=== PATIENT | female | born 1975 | race Caucasian/White ===

== ENCOUNTER → 2022-04-28 06:57 | Outpatient (CLI) | payer BC, SELFPAY ==
--- NOTE | 2022-04-28 06:58 | CA_ITS ---
APPROVED REPORT Exam: Exercise Treadmill Technologist: NEELAM FLORIAN, Ht: 5 ft 1 in Wt: 177 lbs BSA: 1.79 m2 HR: 61 bpm BP: 125/72 mmHg Indications: CP; ABNORMAL EKG, SOA Medical History Medical History: HTN, Hyperlipidemia Medications: Lisinopril,,,,, Omeprazole,,,,, Trazadone,,,,, Fluoxetine,,,,, BenaDRYL,,,,, Imitrex,,,,, Methocarbamol,,,,, RoSUVASTATIN,,,,, HydrochloratHIAZIDE,,,,, Multivitamin,,,,, Potassium,,,,, Allergies: penicillin Cardiac Risk Factors: HTN, Hyperlipidemia, FHX of CAD Stress Test Details Test: Jordon HR Resting HR: 72 bpm Max Heart Rate (APMHR): 176.642499 bpm Max HR Achieved: 164 bpm Target HR (85% APMHR): 149.318304 bpm % of APMHR: 93.18 Recovery HR: 93 bpm BP Resting BP: 119/72 mmHg Max BP: 160/70 mmHg Recovery BP: 159.0/69.0 mmHg ECG Clinical Exercise duration: 06:37 min Highest Stage Achieved: Exercise capacity: 7.0 METs Stress ECG Conclusion PT HAD SOA, AND CHEST TIGHTNESS. OCCASIONAL PAC/PVC <1.[address] CHANGE Test Summary REST . . . . . . . Resting Sitting REST . . . . . . . Standing REST 11:30 0.0 0.0 72 . 119/ 72 . . Stage 1 01:00 10.0 1.7 102 . . . . Stage 1 02:00 10.0 1.7 106 . . . . Stage 1 03:00 10.0 1.7 112 . 140/ 68 . . Stage 2 01:00 12.0 2.5 124 . . . . Stage 2 02:00 12.0 2.5 136 . 155/ 70 . . Stage 2 03:00 12.0 2.5 140 . 155/ 70 . . Stage 3 00:37 14.0 3.4 115 . . . Stop exercise at 06:37 RECOVERY 01:00 0.0 0.0 136 . . . . RECOVERY 02:00 0.0 0.0 113 . 160/ 70 . . RECOVERY 03:00 0.0 0.0 100 . 160/ 70 . . RECOVERY 04:00 0.0 0.0 92 . 159/ 69 . . RECOVERY 05:00 0.0 0.0 88 . 130/ 57 . . RECOVERY 05:04 0.0 0.0 90 . 130/ 57 . . Electronically signed by : Olman Chow MD 04/28/2022 13:26:56
--- NOTE | 2022-04-28 06:58 | NM_ITS ---
APPROVED REPORT Exam: Nuclear Stress Test Indication: HTN, HYPERLIPIDEMIA, FM HX., C.P., SOB, PALPITATIONS, ABN EKG, TOB USE Patient Location: Outpatient Stress Tech: Brandee Brunsonbs [place] Tech:Simran Estrada, ARRT RT (R)(N)(M) Ht: 5 ft 1 in Wt: 180 lbs Bra Size: 36C HR: 61 bpm BP: 155/72 mmHg BSA: 1.81 m2 TID: 1.32 BMI: 34.0 History: HTN, HYPERLIPIDEMIA, FM HX., C.P., SOB, PALPITATIONS, ABN EKG, TOB USE Procedure: Patient exercised on Jordon protocol 6:36 minutes and sec, resting heart rate 61 bpm, resting blood pressure 125/72 mmHg, with exercise maximum heart rate achived was 136 bpm which is 93 % of the maximum predicted heart rate and blood pressure was 155/70 mmHg. Test was stopped due to CHEST TIGHNESS. Patient has Adequate exercise capacity, achieved 7.0 METs of workload on treadmill, the blood pressure response to exercise was Adequate. Electrocardiogram Resting electrocardiogram shows sinus rhythm, with exercise there is less than 1.[address] segment depression noted from the baseline EKG. The EKG portion of the exercise Myoview is negative for ischemia. Cardiac Stress and Resting SPECT Images: Cardiac Stress and Resting SPECT images were obtained using technetium 99m Myoview 29.9 mCi stress and 10.72 mCi at rest. Gated SPECT for analysis of segmental wall motion and calculation of the ejection fraction also done. Cardiac stress and rest SPECT images show reversible ischemia involving the apex and anterolateral wall, computer derived ejection fraction is 60% with no regional wall motion abnormality, right ventricle is normal size and contractility, there is transient ischemic dilatation of the left ventricle with ratio of 1.32 seen. Conclusion: 1. The EKG portion of the left exercise Myoview is negative for ischemia, patient has adequate exercise capacity of 7 METS of workload on treadmill, the blood pressure response to exercise was adequate, patient complained chest tightness with exercise relieved with rest. 2. Scintigraphic evidence of reversible ischemia involving the apex and anterolateral wall, computer derived ejection fraction is 60% with no regional wall motion abnormality, right ventricle is normal size and contractility, there is transient ischemic dilatation of the left ventricle seen with ratio of 1.32. 3. Abnormal exercise Myoview study. Electronically signed by : Olman Chow MD 04/28/2022 13:31:23
--- NOTE | 2022-04-28 06:58 | CA_ITS ---
APPROVED REPORT EXAM: Comprehensive 2D, Doppler, and color-flow Echocardiogram News Clerk: Shaunna Eduardo CRT Ht: 5 ft 1 in Wt: 177lbs BSA: 1.79 BP: 128/74 mmHg Indications: Chest Pain, Shortness of Breath, Hyperlipidemia, Hypertension/HDD 2D Dimensions Aortic Root 1.71 cm LA Volume 22.80 mL LA Volume Index 12.70 mL/m2 (M/F) 16-34 M-Mode Dimensions RVDd 2.55 cm (0.9-2.6) LA Diam 3.52 cm (1.9-4.0) LVDd 4.42 cm (3.5-5.7) Ao Diam 3.01 cm (2.0-3.7) LVDs 2.60 cm (3.5-5.7) IVSd 0.99 cm (0.6-1.1) PWd 0.88 cm (0.6-1.1) EF (Teich) 72.20% FS 41.20% EDV (Teich) 88.60 mL TAPSE 2.26 (<1.7) ESV (Teich) 24.60 mL LV Diastology E Decel Time 170.00 (160-240 msec) E/A Ratio 1.05 MED E' 10.00 (< 7 cm/sec) MED A' 8.40 cm/s E'/MED E' Ratio 6.09 (>14) LAT E' 9.70 (<10 cm/sec) LAT A' 7.30 cm/s E/LAT E' Ratio 6.28 (>14) Mitral Valve MV A Velocity 58.00 (40-130 cm/s) E/A Ratio 1.05 MV Decel. Time 170.00 (160-240 ms) Tricuspid Valve TR P. Velocity 258.00 cm/s RAP Estimate 10.00 mmHg RVSP 36.60 mmHg Left Ventricle Left atrium is normal size, left ventricle is normal size there is preserved left ventricular systolic function, estimated ejection fraction 55% with no regional wall motion abnormality, diastolic parameters are within normal range. Right Ventricle Right atrium and right ventricle are normal size and contractility. Aortic Valve Aortic valve is grossly normal. There is no aortic stenosis or aortic insufficiency. Mitral Valve Mitral valve grossly normal, there is trace mitral regurgitation. Tricuspid Valve Tricuspid grossly normal, there is trace tricuspid regurgitation, tricuspid regurgitation jet velocity is inadequate for calculation of the right ventricular systolic pressure. Pulmonic Valve Pulmonic valve is poorly visualized. Great Vessels Aortic root is normal size. Pericardium No significant pericardial effusion noted. Inferior vena cava is normal size with normal inspiratory collapse. Conclusion 1. Normal left ventricular size preserved left ventricular systolic function, estimated ejection fraction 55% with no regional wall motion abnormality, diastolic parameters are within normal range. 2. Trace mitral and tricuspid regurgitation. 3. No significant pericardial effusion noted 4. Inferior vena cava is normal size with normal inspiratory collapse. Electronically signed by : Olman Chow MD 04/28/2022 13:47:11
== END ==
PROVIDERS: PCP Family Medicine; Visit Provider Internal Medicine Cardiovascular Disease
DX: R06.00 Dyspnea, unspecified (principal); R07.9 Chest pain, unspecified; R94.31 Abnormal electrocardiogram [ECG] [EKG]; E78.5 Hyperlipidemia, unspecified; I10 Essential (primary) hypertension; Z82.49 Family history of ischemic heart disease and other diseases of the circulatory system; Z87.891 Personal history of nicotine dependence
CPT/HCPCS: 78452; 93017; 93306; A9502

== ENCOUNTER → 2022-05-04 16:20 | Outpatient (CLI) | payer BC, SELFPAY ==
[2022-05-04 17:09] LABS: Basophils # 0.1 K/mm3 (0-0.2); Basophils % 1.3 % (0.1-2.0); Eosinophils # 0.2 K/mm3 (0.0-0.4); Eosinophils % 2.2 % (0.1-12.0); Hematocrit 38.3 % (37.0-47.0); Hemoglobin 12.9 g/dL (12.2-16.2); Lymphocytes # 3.1 K/mm3 (0.7-4.5); Lymphocytes % 42.4 % (10-50); Mean Corpuscular HGB Conc 33.6 g/dL (31.8-35.4); Mean Corpuscular Hemoglobin 27.8 pg (27.0-31.2); Mean Corpuscular Volume 82.7 fl (81-99); Mean Platelet Volume 7.5 fl (7.4-10.4); Monocytes # 0.3 K/mm3 (0.1-1.0); Monocytes % 4.7 % (1.7-9.3); Neutrophils # 3.6 K/mm3 (1.8-7.8); Neutrophils % 49.4 % (37.0-80.0); Platelet Count 289 K/mm3 (142-424); Red Blood Count 4.64 M/mm3 (4.20-5.40); Red Cell Distribution Width 14.2 % (11.5-17.5); White Blood Count 7.3 K/mm3 (4.8-10.8)
[2022-05-04 17:56] LABS: Chloride 101 mmol/L (98-107); Potassium 4.2 mmoL/L (3.5-5.1); Sodium 139 mmol/L (136-145)
[2022-05-04 17:59] LABS: Anion Gap 15.2 mEq/L (5-15); Blood Urea Nitrogen 12 mg/dl (7-17); Calcium 8.9 mg/dl (8.4-10.2); Carbon Dioxide 27 mmol/L (22.0-30.0); Estimated Glomerular Filt Rate 91 ml/min (>60); GFR (African American) 110 ML/MIN (>60); Glucose 88 mg/dl (74-100)
== END ==
PROVIDERS: PCP Family Medicine; Visit Provider Physician Assistant
DX: I20.8 Other forms of angina pectoris (principal); I10 Essential (primary) hypertension; E78.5 Hyperlipidemia, unspecified; R94.30 Abnormal result of cardiovascular function study, unspecified; R94.31 Abnormal electrocardiogram [ECG] [EKG]
CPT/HCPCS: 36415; 80048; 85025

== ENCOUNTER 2022-05-11 08:27 | Day surgery (SDC) | payer BC, SELFPAY ==
[2022-05-11] VITALS (12 sets, daily range): BP systolic 86–119; BP diastolic 49–62; PULSE 50–68; RESP 18–19; O2SAT 92–96; BMI 33.0
--- NOTE | 2022-05-11 | IR_ITS ---
APPROVED REPORT Patient Location: Outpatient Chest Painting Leader: GRIS Linda RT (R) PROCEDURES Left heart catheterization Left ventriculogram Selective coronary angiogram INDICATION High risk abnormal Myoview Informed consent was obtained prior to the procedure. COMPLICATIONS None Estimated Blood Loss: Less than 10 mls TECHNIQUE One percent lidocaine used to anesthetize the right anterior aspect of the wrist. The right radial artery was accessed via the Seldinger technique. A 6 [place] sheath was placed in the right radial artery. 2.5 mg of verapamil, 800 mcg of nitroglycerin, 1mg Lidocaine and 5000 U Heparin were given through the arterial sheath. The papa catheter was also used to perform left heart catheterization, left ventriculogram and selective coronary angiogram. At the end of the procedure the sheath was removed good hemostasis was achieved using Traclet band, patient was transferred to the postop holding area in stable condition. ANGIOGRAPHIC RESULTS The left main artery Normal The left anterior descending artery Normal The circumflex artery Dominant normal The right coronary artery Normal The TELLO ventriculogram reveals Preserved 55% The left ventricular end-diastolic pressure 20 mmHg IMPRESSION Normal coronary arteries Preserved ejection fraction Mildly elevated LVEDP PLAN 1. Treatment diastolic dysfunction 2. Medical management Electronically signed by : Artemio Buck MD 05/11/2022 10:16:30
== END 2022-05-11 13:18 | disposition home or self-care (01) ==
LOC: CATHLAB 08:30
PROVIDERS: PCP Family Medicine; Visit Provider Internal Medicine
DX: R94.39 Abnormal result of other cardiovascular function study (principal); I20.8 Other forms of angina pectoris; R07.9 Chest pain, unspecified; E78.5 Hyperlipidemia, unspecified; I10 Essential (primary) hypertension; R94.31 Abnormal electrocardiogram [ECG] [EKG]; Z82.49 Family history of ischemic heart disease and other diseases of the circulatory system; Z87.891 Personal history of nicotine dependence; Z79.899 Other long term (current) drug therapy
CPT/HCPCS: 93458; 99152; C1725; C1769; J1644; Q9967

== ENCOUNTER → 2022-05-29 16:33 | Outpatient (CLI) | payer BC, SELFPAY ==
[2022-05-29 17:25] LABS: Basophils # 0.1 K/mm3 (0-0.2); Basophils % 1.4 % (0.1-2.0); Eosinophils # 0.1 K/mm3 (0.0-0.4); Eosinophils % 1.2 % (0.1-12.0); Hematocrit 40.5 % (37.0-47.0); Hemoglobin 13.2 g/dL (12.2-16.2); Lymphocytes # 2.7 K/mm3 (0.7-4.5); Lymphocytes % 43.8 % (10-50); Mean Corpuscular HGB Conc 32.6 g/dL (31.8-35.4); Mean Corpuscular Hemoglobin 27.3 pg (27.0-31.2); Mean Corpuscular Volume 83.8 fl (81-99); Monocytes # 0.3 K/mm3 (0.1-1.0); Monocytes % 5.2 % (1.7-9.3); Neutrophils # 2.9 K/mm3 (1.8-7.8); Neutrophils % 48.3 % (37.0-80.0); Platelet Count 282 K/mm3 (142-424); Red Blood Count 4.84 M/mm3 (4.20-5.40); Red Cell Distribution Width 13.5 % (11.5-17.5); White Blood Count 6.1 K/mm3 (4.8-10.8)
[2022-05-29 18:30] LABS: Anion Gap 16.2 mEq/L (5-15); Blood Urea Nitrogen 9 mg/dl (7-17); Carbon Dioxide 31 mmol/L (22.0-30.0); Chloride 95 mmol/L (98-107); Estimated Glomerular Filt Rate 78 ml/min (>60); GFR (African American) 94 ML/MIN (>60); Glucose 97 mg/dl (74-100); Magnesium 1.6 mg/dl (1.6-2.3); Potassium 4.2 mmoL/L (3.5-5.1); Sodium 138 mmol/L (136-145)
[2022-05-29 18:49] LABS: Free T4 (Free Thyroxine) 0.77 ng/dl (0.78-2.19)
[2022-05-29 19:03] LABS: Thyroid Stimulating Hormone 1.77 uIU/mL (0.465-4.68)
== END ==
PROVIDERS: Internal Medicine Cardiovascular Disease; PCP Family Medicine; Visit Provider Physician Assistant
DX: R06.00 Dyspnea, unspecified (principal); R07.9 Chest pain, unspecified; R94.31 Abnormal electrocardiogram [ECG] [EKG]; I10 Essential (primary) hypertension; E78.5 Hyperlipidemia, unspecified; E66.9 Obesity, unspecified; Z68.34 Body mass index [BMI] 34.0-34.9, adult; Z82.49 Family history of ischemic heart disease and other diseases of the circulatory system; Z87.891 Personal history of nicotine dependence
CPT/HCPCS: 36415; 80048; 83735; 84439; 84443; 85025